=== PATIENT | female | born 1980 | race Two or more races ===

== ENCOUNTER 2021-05-03 16:50 | Outpatient (CLI) | payer BC, SELFPAY ==
--- NOTE | 2021-05-03 17:03 | CT_ITS ---
EXAM: CT MAXILLOFACIAL SINUSES WITHOUT INTRAVENOUS CONTRAST CLINICAL INDICATION: RT SINUS MASS RT SINUS MASS TECHNIQUE: Helically acquired images were obtained of the maxillofacial sinuses without intravenous contrast. This CT exam was performed using one or more of the following dose reduction techniques: automated exposure control, adjustment of the mA and/or kV according to patient size, and/or use of iterative reconstruction technique. This report was created using [employer] report generation technology. COMPARISON: None. FINDINGS: MAXILLARY SINUSES: Slight mucosal disease floor of the right maxillary sinus. Ostiomeatal complexes are normally formed. SPHENOID SINUSES: Clear. FRONTAL SINUSES: Clear. ETHMOID AIR CELLS: Clear. NASAL CAVITY/SEPTUM: Nasal septum is midline. Nasal turbinates are unremarkable. BONES/JOINTS: Anterior cranial fossa is unremarkable. ORBITS: Unremarkable. DENTAL: Unremarkable as visualized. No periodontal osseous erosion. CT/Sinus/Facial Bone IMPRESSION: Slight mucosal disease floor of the right maxillary sinus. No sinus masses. Electronically Signed: Benigno Pino MD at 20:09 EDT ,
== END 2021-05-03 23:59 | disposition home or self-care (01) ==
LOC: CT 17:00
PROVIDERS: Referring Provider Otolaryngology; Visit Provider Otolaryngology
DX: J34.89 Other specified disorders of nose and nasal sinuses (principal)
CPT/HCPCS: 70486